=== PATIENT | female | born 1950 | race Caucasian/White ===

== ENCOUNTER 2024-08-19 11:47 | Outpatient (CLI) | payer MEDICARE | END 2024-08-19 11:48 | disposition home or self-care (01) | LOC: BICRAD 11:47 | PROVIDERS: ATTEND Internal Medicine | DX: K21.9 Gastro-esophageal reflux disease without esophagitis (principal); R07.9 Chest pain, unspecified; Z86.0100 Personal history of colon polyps, unspecified; J98.6 Disorders of diaphragm | CPT/HCPCS: 71046 ==